=== PATIENT | female | born 1965 | race Native Hawaiian/Other Pacific Islander ===

== ENCOUNTER 2022-04-05 09:47 | Outpatient (CLI) | payer OTHER | END 2022-04-05 19:00 | disposition home or self-care (01) | LOC: RAD 09:47 | PROVIDERS: ATTEND Nurse Practitioner Family | DX: M54.59 Other low back pain (principal) ==

== ENCOUNTER 2023-04-11 11:24 | Outpatient (CLI) | payer OTHER | END 2023-04-11 20:42 | disposition home or self-care (01) | LOC: US 11:24 | PROVIDERS: ATTEND Nurse Practitioner Family | DX: M25.561 Pain in right knee (principal) ==